=== PATIENT | female | born 1960 | race Caucasian/White ===

== ENCOUNTER 2017-10-07 07:48 | Observation (INO) | payer BC, OTHER ==
[2017-10-01 15:05] VITALS: BMI 35.2
[~2017-10-07 07:48] MED LIST: DEXAMETHASONE SOD PHOSPHATE 10 MG/ML 1 ML VIAL IV ONE; LACTATED RINGERS 1,000 ML IV SCH; ONDANSETRON 4 MG/2 ML VIAL IVP ONE; ceFAZolin IN SWFI 2 GM/20 ML SYRINGE IVP ONE
[2017-10-07] MEDS ORDERED: LIDOCAINE 1% 20 ML VIAL (10MG/ML) FOR IV START INTRADERMA ONE (08:18)
[2017-10-07] MEDS ORDERED: LACTATED RINGERS 1,000 ML IV ONE (08:18)
[2017-10-07] MEDS ORDERED: BUPIVACAINE (PF) 0.5% 30 ML VIAL SQ ONE ×2 (09:24)
[2017-10-07] MEDS ORDERED: PROPOFOL 10 MG/ML 20 ML VIAL IV ONE (09:24)
[2017-10-07] MEDS ORDERED: fentaNYL (PF) 50 MCG/ML 2 ML AMP ONE (09:24)
[2017-10-07] MEDS ORDERED: MIDAZOLAM 2 MG/2 ML VIAL ONE (09:24)
[2017-10-07] MEDS ORDERED: HYDROmorphone (PF) 1 MG/ML ONE (09:24)
[2017-10-07] MEDS ORDERED: ceFAZolin 1,000 MG in SODIUM CHLORIDE 0.9% 1,000 ML IRRIGATION ONE (09:49)
--- NOTE | 2017-10-07 11:28 | XR ---
EXAMINATION TYPE: XR wrist limited RT, FL guidance operating room DATE OF EXAM: 10/07/2017 CLINICAL HISTORY: Open reduction internal fixation of the right wrist TECHNIQUE: Fluoroscopy. COMPARISON: Outside radiographs dated 10/01/2017 FINDINGS/IMPRESSION: Fluoroscopic guidance was provided during procedure performed by Dr. Harris. A t otal of 5 seconds of fluoroscopic time was utilized during the procedure and 4 spot images was acquir ed during open reduction and internal fixation of the right wrist.
[2017-10-07] MEDS ORDERED: HYDROmorphone 1 MG/ML 1 ML SYRINGE IVP PRN ×2 (11:41)
[2017-10-07] MEDS ORDERED: ONDANSETRON 4 MG/2 ML VIAL IVP PRN (11:41)
[2017-10-07] MEDS ORDERED: HYDROcodone/APAP 7.5-325MG 1 EACH TAB PO PRN (11:43)
[2017-10-07] MEDS: HYDROmorphone 1 MG/ML 1 ML SYRINGE IVP PRN ×4 (12:00→19:25)
[2017-10-07] MEDS: LACTATED RINGERS 1,000 ML IV SCH ×2 (12:43→23:37)
[2017-10-07] MEDS: HYDROcodone/APAP 7.5-325MG 1 EACH TAB PO PRN ×2 (16:35→22:57)
[2017-10-07] MEDS: hydrOXYzine PAMOATE 25 MG CAP PO PRN ×2 (16:36→22:57)
[2017-10-07] MEDS: ceFAZolin IN SWFI 2 GM/20 ML SYRINGE IVP SCH ×2 (17:59→23:57)
[2017-10-07] MEDS: MORPHINE SULFATE ER 30 MG TABLET PO SCH (20:03)
[2017-10-07] MEDS ORDERED: TEMAZEPAM 15 MG CAP PO PRN (21:00)
[2017-10-07] MEDS ORDERED: SENNOSIDES-DOCUSATE SODIUM 1 EACH TAB PO PRN (21:00)
[2017-10-08] MEDS: hydrOXYzine PAMOATE 25 MG CAP PO PRN (04:14)
[2017-10-08] MEDS: HYDROcodone/APAP 7.5-325MG 1 EACH TAB PO PRN ×2 (04:15→09:31)
--- NOTE | 2017-10-08 07:49 | OP ---
OPERATIVE REPORT DATE OF SERVICE: 10/07/2017 SURGEON: Timothy Harris DO. GEAR HOBBER OPERATOR: Ragini George NP PREOPERATIVE DIAGNOSIS: Malunion fracture of the distal right radius and distal right ulna. POSTOPERATIVE DIAGNOSIS: Malunion fracture of the distal right radius and distal right ulna. PROCEDURE PERFORMED: Open reduction internal of fixation of a malunion fracture of the distal right radius utilizing the volar plate, open reduction internal fixation of the distal right ulna. ESTIMATED BLOOD LOSS:: SPECIMEN TAKEN:: DESCRIPTION OF THE PROCEDURE: The patient was taken to the operative suite and placed in supine position. General inhalation anesthesia was performed by the department of anesthesiology. A Betadine prep was carried out over the right arm and hand. Sterile drapes applied in the usual manner. The Pneumatic tourniquet was inflated to 250 mmHg. A longitudinal incision was developed over the volar aspect of the distal radius along the flexor carpi radialis tendon. Blunt dissection through the subcutaneous tissue was performed. Dissection was carried out to volar surface of the radius. [place] retractor was inserted and utilized. A periosteal elevator was utilized in visualizing of the distal radius fracture. the elevator was also utilized in freeing tissue in the area. The gentle reduction was then carried out and a volar plate was positioned and secured with peg pin. The reduction and position were well maintained and aligned. The lock peg was utilized Peg screws were utilized. X ray used documenting improvement in position and distal radial tilt. The plate was then secured proximally with screws and reduction was maintained. Alignment and position were stable. X-rays were obtained throughout the procedure documenting alignment and position. The lateral incision was then carried out over the distal ulna fracture. Blunt dissection through subcutaneous tissue was performed. The lateral nerve was gently retracted as well as the carpi ulnaris tendon area was noted. The longitudinal resection with periosteal elevator was performed as the fracture identified. The soft tissue was removed from the area and the fracture was reduced and held in position with a longitudinal clamp. A 4 hole plate was then placed over the fracture with locking screws were inserted and securing both fractures. Alignment and stability were well maintained. Area was irrigated copiously. The pneumatic tourniquet was then deflated. The hemostasis was controlled with electrocautery. No evidence of radial artery bleeding noted at this time. The fascia was then approximated with deep superficial 2-0 Vicryl suture in interrupted fashion. Skin was approximated with 4-0 nylon suture in interrupted fashion. The area was infiltrated with 0.5% Marcaine. Betadine, Adaptic and sterile pressure dressing as well as splint was applied and the patient was then transferred to the recovery room in satisfactory postop condition. GROSS PATHOLOGY: There is evidence of two malunion fracture of the distal right radius and distal ulna. MMODL / IJN: [id number] / MTDAnson
[2017-10-08] MEDS: LACTATED RINGERS 1,000 ML IV SCH (08:04)
[2017-10-08] MEDS: MORPHINE SULFATE ER 30 MG TABLET PO SCH (08:19)
--- NOTE | 2017-10-08 08:39 | P.DS ---
Providers Date of admission: 10/07/17 20:20 Expected date of discharge: 10/08/17 Attending physician: Timothy Harris Consults: 10/07/17 11:41 Consult Physician Routine Consulting Provider: David Anguiano Consult Reason/Comments: medical management Do you want consulting provider notified?: Yes Primary care physician: Stated None - Discharge Diagnosis(es) (1) Distal radius fracture, right Status: Acute (2) Right distal ulnar fracture Status: Acute (3) History of open reduction and internal fixation (ORIF) procedure Status: Acute Hospital Course: This is a 57-year-old female with known history of a recent fracture to her right radius and ulna after a fall. The patient presented to the orthopedic office for evaluation. After discussion and consideration patient elects to proceed with an ORIF of the right radius and ulna. The patient is seen preoperatively by her primary care physician and cleared for surgery. Patient is admitted to observation at [facility] on 10/07/2017 for an ORIF of the right distal radius and ulna. The procedure was performed without complication or sequelae. The patient is doing well postoperatively. Labs and vital signs are stable on day of discharge. On day of discharge patient's dressing and splint are clean, dry, and intact. There is minimal soft tissue swelling to the right upper extremity. Patient has full finger, elbow and shoulder ROM. Neurovascular status to the right upper extremity is intact. Patient is discharged to home in good condition. Patient Condition at Discharge: Stable Plan - Discharge Summary Discharge Rx Participant: Yes New Discharge Prescriptions: New Cephalexin [Keflex] 500 mg PO Q8HR #15 cap HYDROcodone/APAP 7.5-325MG [[place] 7.5-325] 1 - 2 tab PO Q4-6H PRN #60 tab PRN Reason: Pain Sennosides-Docusate Sodium [Senokot-S] 2 tab PO DAILY #30 tablet Discontinued Fish Oil/Dha/Epa [Fish Oil 1,200 mg Fish Oil] 1 cap PO DAILY Ibuprofen 800 mg PO BID PRN PRN Reason: Pain No Action Magnesium Oxide [Mag-Ox] 250 mg PO DAILY Cyanocobalamin (Vitamin B-12) [Vitamin B-12] 1,000 mcg PO DAILY Cinnamon Bark [Cinnamon] 1,000 mg PO DAILY Cholecalciferol [Vitamin D3] 2,000 unit PO DAILY Calcium Carbonate [Calcium] 600 mg PO BID Ascorbic Acid [Vitamin C] 500 mg PO DAILY PARoxetine HCL [Paxil] 40 mg PO DAILY Nortriptyline [Pamelor] 50 mg PO HS Hydrochlorothiazide [Hydrodiuril] 25 mg PO DAILY Morphine Sulfate ER [Ms Contin 30Mg] 30 mg PO Q12HR Hydrocodone/Acetaminophen [[place] 5-325] 1 - 2 tab PO Q6HR PRN PRN Reason: Pain Levothyroxine Sodium [Synthroid] 75 mcg PO DAILY Gabapentin [Neurontin] 400 mg PO TID Omeprazole [PriLOSEC] 40 mg PO W/SUPPER Miralax(Dose Unknown) 1 cap PO DAILY Discharge Medication List Ascorbic Acid [Vitamin C] 500 mg PO DAILY 10/01/17 [History] Calcium Carbonate [Calcium] 600 mg PO BID 10/01/17 [History] Cholecalciferol [Vitamin D3] 2,000 unit PO DAILY 10/01/17 [History] Cinnamon Bark [Cinnamon] 1,000 mg PO DAILY 10/01/17 [History] Cyanocobalamin (Vitamin B-12) [Vitamin B-12] 1,000 mcg PO DAILY 10/01/17 [ History] Gabapentin [Neurontin] 400 mg PO TID 10/01/17 [History] Hydrochlorothiazide [Hydrodiuril] 25 mg PO DAILY 10/01/17 [History] Hydrocodone/Acetaminophen [[place] 5-325] 1 - 2 tab PO Q6HR PRN 10/01/17 [History] Levothyroxine Sodium [Synthroid] 75 mcg PO DAILY 10/01/17 [History] Magnesium Oxide [Mag-Ox] 250 mg PO DAILY 10/01/17 [History] Miralax(Dose Unknown) 1 cap PO DAILY 10/01/17 [History] Morphine Sulfate ER [Ms Contin 30Mg] 30 mg PO Q12HR 10/01/17 [History] Nortriptyline [Pamelor] 50 mg PO HS 10/01/17 [History] Omeprazole [PriLOSEC] 40 mg PO W/SUPPER 10/01/17 [History] PARoxetine HCL [Paxil] 40 mg PO DAILY 10/01/17 [History] Cephalexin [Keflex] 500 mg PO Q8HR #15 cap 10/08/17 [Rx] HYDROcodone/APAP 7.5-325MG [[place] 7.5-325] 1 - 2 tab PO Q4-6H PRN #60 tab [Rx] Sennosides-Docusate Sodium [Senokot-S] 2 tab PO DAILY #30 tablet 10/08/17 [Rx] Follow up Appointment(s)/Referral(s): Timothy Harris DO [Doctor of Osteopathic Medicine] - 10/22/17 10:00 am Patient Instructions/Handouts: ORIF of a Wrist Fracture (DC) Activity/Diet/Wound Care/Special Instructions: Keep splint clean, dry, and intact Elevate and ice Sling for comfort Follow up with Dr. Harris in 7-10 days Call [facility] with any questions or concerns, . Discharge Disposition: HOME SELF-CARE
[2017-10-08 22:57] VITALS: BP 125/74; PULSE 81; RESP 16; TEMP 98.3
--- NOTE | 2017-10-08 23:02 | CONS ---
CONSULTATION REASON FOR CONSULTATION: Consultation regarding hypothyroidism and multiple medical issues requested by Orthopedic surgery. HISTORY: This 57-year-old woman with past medical history of hypothyroidism, GERD, fibromyalgia, DJD being followed by Dr. Hicks in the outpatient setting was admitted after surgery for a radial fracture. There is no history of chest pain. No history of palpitations, headache, loss of consciousness or seizures. No history of headache, nausea or vomiting, fever, rigors or chills. PAST MEDICAL HISTORY: History of fibromyalgia, GERD, hypothyroidism, back surgery and DJD. MEDICATIONS: Home medications are: 1. Paxil 40 mg daily. 2. Prilosec 40 mg daily. 3. Pamelor 50 mg. 4. MS Contin 30 mg p.o. b.i.d. 5. Magnesium oxide 250 mg. 6. Synthroid 75 mcg. 7. [place] 5 mg q.6h p.r.n. 8. HydroDIURIL 25 mg daily. 9. Neurontin 400 mg daily. 10.Vitamin D2 2000 mcg. 11.Vitamin D3 2000 daily. 12.Calcium 600 mg daily. 13.Vitamin C 500 mg daily. 14.Senokot-S 2 tablets p.o. daily. 15.[place] 7.5 mg. 16.Keflex. ALLERGIES: ARE BACTRIM, LATEX, NEOMYCIN, POLYMYXIN. FAMILY HISTORY: History of cancer in the family. SOCIAL HISTORY: Previous history of smoking. Occasional alcohol intake. REVIEW OF SYSTEMS: ENT: No diminished vision. No diminished hearing. Cardiovascular: S1, S2 muffled. Respiratory: No cough. GI no nausea or vomiting. : No dysuria. NERVOUS SYSTEM: No numbness or weakness. Allergy/Immunology: No asthma or hayfever. Musculoskeletal: As mentioned earlier. Hematology/Oncology: No history of anemia. ENDOCRINE: No history of diabetes or hypothyroidism. Constitutional: As mentioned earlier. Rheumatology: Negative. Dermatology: Negative. Psychiatric: As mentioned earlier. PHYSICAL EXAMINATION: Alert and oriented x2. Pulse is 81, blood pressure 125/70, respirations 18, temperature 98.2, pulse ox 98% on room air. HEENT: Conjunctivae normal. Neck: No jugular venous distention. Cardiovascular: S1, S2 muffled. Respiratory: Breath sounds diminished in the bases. No rhonchi and no crackles. ABDOMEN: Soft, nontender. No mass palpable. Legs are no edema, no swelling. Central nervous system: No focal deficits. Examination of the arm status post fracture. LABS: Noted. ASSESSMENT: 1. Status post open reduction and internal fixation with malunion fracture of the distal right radius. 2. Chronic pain syndrome. 3. Fibromyalgia. 4. Gastroesophageal reflux disease. 5. Hypothyroidism. 6. Back pain, DJD. 7. Depression. 8. Remote history of nicotine dependence. RECOMMENDATIONS AND DISCUSSION: In this 57-year-old woman who presented with multiple complex medical issues, I would recommend resume the home medications. DVT prophylaxis. Incentive spirometry. Recommend close followup with primary physician in the outpatient setting. We will follow the patient closely with you. Thank you for letting us taking part in the patient's care. MARISA / IJN: [id number] /
== END 2017-10-08 12:15 | disposition home or self-care (01) ==
LOC: OR 07:48 → 3SUR 11:29 → OR 20:20 → 3SUR 20:20
PROVIDERS: ADMIT Orthopaedic Surgery; ATTEND Orthopaedic Surgery
DX: S52.501A Unspecified fracture of the lower end of right radius, initial encounter for closed fracture (principal); S52.601A Unspecified fracture of lower end of right ulna, initial encounter for closed fracture; W18.30XA Fall on same level, unspecified, initial encounter; Y99.0 Civilian activity done for income or pay; G89.4 Chronic pain syndrome; M79.7 Fibromyalgia; K21.9 Gastro-esophageal reflux disease without esophagitis; E03.9 Hypothyroidism, unspecified; M19.90 Unspecified osteoarthritis, unspecified site; M54.9 Dorsalgia, unspecified; F32.9 Major depressive disorder, single episode, unspecified; Z87.891 Personal history of nicotine dependence; Z80.9 Family history of malignant neoplasm, unspecified; Z88.1 Allergy status to other antibiotic agents; Z91.040 Latex allergy status; Z79.899 Other long term (current) drug therapy; Z79.891 Long term (current) use of opiate analgesic; Z88.2 Allergy status to sulfonamides
CPT/HCPCS: 25415; 94760; 73100; G0378 ×2; C1713; J2250; J1100; J0690 ×2; J2405; J3010; J1170; J2704

== ENCOUNTER → 2020-08-25 | Outpatient (CLI) | payer OTHER | END | disposition home or self-care (01) | LOC: LABWHC1 11:31 | PROVIDERS: ATTEND Nurse Practitioner | DX: E03.9 Hypothyroidism, unspecified (principal); E11.9 Type 2 diabetes mellitus without complications | CPT/HCPCS: 36415; 84439; 84443 ==

== ENCOUNTER → 2020-08-25 | Outpatient (CLI) | payer OTHER ==
--- NOTE | 2020-08-25 12:18 | XR ---
EXAMINATION TYPE: XR chest 2V DATE OF EXAM: 08/25/2020 COMPARISON: None INDICATION: Right lower rib pain, presurgical clearance TECHNIQUE: Frontal and lateral views of the chest are obtained. FINDINGS: The heart size is normal. The pulmonary vasculature is normal. The lungs are clear. IMPRESSION: 1. No acute pulmonary process.
[2020-08-25 12:51] LABS: Basophils % (A) 1 %; Eosinophils % (A) 0 %; HCT 41.5 % (34.0-46.0); HGB 13.8 gm/dL (11.4-16.0); Lymphocytes % (A) 12 %; MCH 30.6 pg (25.0-35.0); MCHC 33.1 g/dL (31.0-37.0); MCV 92.3 fL (80.0-100.0); Mean Platelet Volume 8.2; Monocytes # (A) 0.2 k/uL (0-1.0); Monocytes % (A) 3 %; Neutrophils # (A) 6.6 k/uL (1.3-7.7); Neutrophils % (A) 84 %; Platelet Count 249 k/uL (150-450); RDW 13.2 % (11.5-15.5); WBC 7.9 k/uL (3.8-10.6)
[2020-08-25 13:02] LABS: African American GFR (CKD) >90 (>60 ml/min/1.73 sqM); Anion Gap 5 mmol/L; Blood Urea Nitrogen 19 mg/dL (7-17); Calcium 9.5 mg/dL (8.4-10.2); Carbon Dioxide 35 mmol/L (22-30); Chloride 98 mmol/L (98-107); Glucose 147 mg/dL (74-99); Non-African American GFR(CKD) >90 (>60 ml/min/1.73 sqM); Potassium 4.8 mmol/L (3.5-5.1); Sodium 138 mmol/L (137-145)
[2020-08-25 13:03] LABS: Amorphous Sediment,Urine Many /hpf; Appearance,Urine Cloudy (Clear); Bilirubin,Urine Negative (Negative); Blood,Urine Negative (Negative); Color,Urine Yellow; Glucose,Urine (UA) Negative (Negative); Ketones,Urine Negative (Negative); Leukocyte Esterase,Urine Trace (Negative); Mucus,Urine Rare /hpf; Nitrite,Urine Negative (Negative); PH, Urine 7.5 (5.0-8.0); Protein,Urine Negative (Negative); Prothrombin Time 10.4 sec (9.0-12.0); Squamous Epithelial Cell,Urine <1 /hpf (0-4); Urobilinogen,Urine <2.0 mg/dL (<2.0); WBC,Urine 2 /hpf (0-5)
[2020-08-25 13:04] LABS: Partial Thromboplastin Time 22.5 sec (22.0-30.0)
== END | disposition home or self-care (01) ==
LOC: LABPAT 11:24
PROVIDERS: ATTEND Orthopaedic Surgery Orthopaedic Surgery of the Spine
DX: Z01.818 Encounter for other preprocedural examination (principal); Z01.812 Encounter for preprocedural laboratory examination; M48.07 Spinal stenosis, lumbosacral region
CPT/HCPCS: 36415; 71046; 80048; 81001; 85025; 85610; 85730; 87070; 93005

== ENCOUNTER 2020-09-04 06:05 | Observation (INO) | payer BC, OTHER ==
[2020-08-29 13:04] VITALS: BMI 36.0
[~2020-09-04 06:05] MED LIST changes: -DEXAMETHASONE SOD PHOSPHATE 10 MG/ML 1 ML VIAL IV ONE; +DEXAMETHASONE SOD PHOSPHATE 4 MG/ML 1 ML VIAL IV ONE; -LACTATED RINGERS 1,000 ML IV SCH; +ceFAZolin 1,000 MG in SODIUM CHLORIDE 0.9% IRRIGATIO 1,000 ML IRRIGATION PRN; -ceFAZolin IN SWFI 2 GM/20 ML SYRINGE IVP ONE
[2020-09-04 06:51] LABS: Glucose,Whole Blood 144 mg/dL (75-99)
[2020-09-04] MEDS ORDERED: GELATIN SPONGE,ABSORB (LARGE) 1 EACH SPONGE TOPICAL ONE (07:00)
[2020-09-04] MEDS ORDERED: LIDOCAINE 0.5%-EPI 1:200,000 50 ML VIAL SQ ONE (07:00)
[2020-09-04] MEDS ORDERED: LIDOCAINE 1% (10MG/ML) FOR IV START INTRADERMA ONE (07:00)
[2020-09-04] MEDS ORDERED: THROMBIN (BOVINE) 5,000 UNIT VIAL TOPICAL ONE (07:00)
[2020-09-04] MEDS ORDERED: HYDROCORTISONE SUCCINATE 100 MG/2 ML VIAL IV ONE (07:07)
[2020-09-04] MEDS: LACTATED RINGERS 1,000 ML IV SCH (07:08)
[2020-09-04] MEDS ORDERED: MIDAZOLAM 2 MG/2 ML VIAL ONE (07:25)
[2020-09-04] MEDS ORDERED: LIDOCAINE 1% INJ 10MG/ML (20 ML MDV) ONE (07:25)
[2020-09-04] MEDS ORDERED: ROCURONIUM 10 MG/ML (10 ML VIAL) IV ONE (07:25)
[2020-09-04] MEDS ORDERED: SUCCINYLCHOLINE CHLORIDE 100 MG/5 ML SYR IV ONE (07:25)
[2020-09-04] MEDS ORDERED: PROPOFOL 10 MG/ML 20 ML VIAL IV ONE (07:25)
[2020-09-04] MEDS ORDERED: GLYCOPYRROLATE 0.2 MG/ML 2 ML VIAL ONE (07:25)
[2020-09-04] MEDS ORDERED: NEOSTIGMINE 1 MG/ML 10 ML VIAL ONE (07:25)
[2020-09-04] MEDS ORDERED: fentaNYL (PF) 50 MCG/ML 2 ML AMP ONE (07:25)
[2020-09-04] MEDS ORDERED: KETAMINE 10 MG/ML 20 ML VIAL ONE (07:25)
[2020-09-04] MEDS ORDERED: LACTATED RINGERS 1,000 ML IV ONE ×2 (09:00→11:55)
[2020-09-04] MEDS ORDERED: ONDANSETRON 4 MG/2 ML VIAL IVP PRN (10:46)
[2020-09-04] MEDS ORDERED: HYDROcodone/APAP 5-325MG 1 EACH TAB PO PRN (10:46)
[2020-09-04] MEDS ORDERED: MAGNESIUM HYDROXIDE 2,400 MG/10 ML CUP PO PRN (10:46)
[2020-09-04] MEDS ORDERED: BENZOCAINE/MENTHOL LOZENG 1 EACH LOZENGE MUCOUS MEM PRN (10:46)
[2020-09-04] MEDS ORDERED: HYDROmorphone 0.5 MG/0.5 ML SYRINGE IVP PRN (10:46)
--- NOTE | 2020-09-04 10:57 | P.OP ---
Date of Procedure: 09/04/20 Preoperative Diagnosis: Spinal stenosis L5-S1, severe disc degeneration L5-S1, degenerative disc disease L5-S1, facet arthrosis L5-S1, foraminal stenosis L5-S1, low back pain, lower extremity radiculopathy Postoperative Diagnosis: Spinal stenosis L5-S1, severe disc degeneration L5-S1, degenerative disc disease L5-S1, facet arthrosis L5-S1, foraminal stenosis L5-S1, low back pain, lower extremity radiculopathy Anesthesia: GETA Pathology: none sent Condition: stable Disposition: PACU Description of Procedure: DESCRIPTION OF PROCEDURE(S): BRIEF OPERATIVE NOTE Preoperative Diagnosis: Spinal stenosis L5-S1, severe disc degeneration L5-S1, degenerative disc disease L5-S1, facet arthrosis L5-S1, foraminal stenosis L5- S1, low back pain, lower extremity radiculopathy Postoperative Diagnosis: Same Procedure: Laminectomy and decompression L5-S1 Computer CT navigation aided Minimally invasive Posterior lateral decompression and facet fusion L5-S1 Minimally invasive Transforaminal lumbar interbody fusion for a 360 fusion L5-S1 Discectomy for decompression L5-S1 Placement of interbody graft L5-S1 Use of computer navigation for fusion Local autogenous bone grafting Aspiration of bone marrow from the vertebral body pedicle of L5 on the right Use of bone graft extenders Surgeon: Dr. Choudhary Umbrella Finisher: Mehnaz GROSS who is present throughout the entire the case persistence during positioning, dissection, exposure, visualization, and all crucial elements of the case as well as closure. Anesthesia: General anesthesia per Estimated blood loss: Approximately 200 mL Complications: None apparent Components implanted: K2M minimally invasive Elida pedicle screw system withscrews measuring 6.5 mm in diameter to rods one Butler interbody cage with 10 mL of osteo amp bio4 bone graft substitute and 30 mL of the BX bone fibers to supplement the local autogenous bone graft and bone marrow aspirate Disposition: To recovery room in good stable condition. OPERATIVE INDICATIONS The patient has had severe issues at their lower extremity in her lower back over the past several years with significant worsening over the past several months. Over the past few months the patient had pain at her back and bilateral lower extremity. The patient is having significant radicular symptoms at her lower extremity. The patient is having significant pain in her back. They are unable to obtain any comfort. We did aggressive conservative treatment with medications therapy and interventional pain management however she was not having any relief. The patient has been through conservative treatment. We discussed various treatment options including surgery, and the patient wishes to proceed with surgery We discussed the risk, patient's alternatives and benefits of surgery including but not limited to, risk of bleeding risk of infection, risk of need for further surgery, risk of decreased, loss of motion, muscle function, malunion nonunion, hardware failure, nerve damage, paralysis, heart attack, blindness and . They understood issues with the current pandemic and the possibility of exposure. OPERATIVE SUMMARY After discussing all the risks, patient alternatives and benefits at length, the patient elected to proceed with surgical intervention, signed informed consent, and presented for their procedure. The patient was seen and examined in the preoperative holding area and the surgical site was marked. The patient was given antibiotics and brought to the operating room. The patient was sedated and intubated by anesthesia in standard fashion. The patient was positioned on to the operating room table in a prone position on the appropriate frame which was well-padded and well molded. We were careful to pad any bony prominences and pressure points. We were careful to maintain the patient's cervical spine and good neutral alignment and position throughout. The patient was prepped and draped in a normal standard fashion. An appropriate timeout and keystone protocol performed. We were able to proceed with the surgery. The local wound area was infiltrated with local anesthetic at L5-S1 bilaterally. Over the right iliac crest I was able to make small stab incisions and establish a guidepin screw fixation to the iliac crest 2. I was able place the computer referencing device over the guidepins to establish an appropriate reference point for the Ziem CT navigation. We then were able to place patient in an appropriate drape and do a navigation spin for visualization and 3-D reconstruction of the lumbar spine with attention to the L5-S1 space. I was abl e utilize C-arm guidance and navigation to establish appropriate position over the pedicles bilaterally at the appropriate levels . With the appropriate levels confirmed was able to make small stab incisions over the appropriate pedicle sites bilaterally. Utilizing the computer navigation device I was able to establish bony landmarks at the right iliac crest for a bony reference point for the navigation device. I was able to establish a Jamshidi needle over the lateral aspect of the pedicle and advanced the trocar into the pedicle being careful not to breech superiorly inferiorly medially or laterally using computer navigation device. Position was confirmed regularly with AP and lateral images on C-arm and with the computer navigation device at the appropriate levels bilaterally. I was able to establish the trocar into the pedicle appropriately into the posterior aspect of the vertebral body bilaterally at the appropriate levels. This was done at each of the pedicle positions and each of the vertebrae. At the superior vertebrae of L5 on the right I was able to take approximately 25 mL of bone aspiration for use later in the case to supplement the allograft and autograft bone. I was able place the guidewire into the trocar and into the vertebral body appropriately under C-arm guidance. Dissection was taken down over the wire to the appropriate starting position for the screw placed. The appropriate length screw was chosen, threaded over the guidewire and screwed appropriately into the pedicle and vertebral body under C- arm guidance in excellent alignment and position with good bony purchase. This is done at each of the screw sites at the appropriate levels at L5-S1 bilaterally.. With the screws intact I extended the incision to connect the screw hole sites on the left side. I dissected down to establish access over the pars and lamina to the base of the spinous process. I was able to expose the facet joint. The capsule the facet was taken down and showed some facet arthrosis at the joint. I was able to use a combination of curettes and Kerrison rongeurs and a high- speed drill to take down the facet joint and do a facetectomy. I was able get excellent foraminal decompression and central decompression with undermining across midline to perform a laminectomy centrally and contralaterally. As able get good central decompression at L5-S1. The ligamentum flavum was taken down to further decompress centrally and at bilateral neural foramen. I was able to expose the disc space and visualize the traversing nerve root. Note was made of some disc protrusion and disc herniation that was abutting the traversing nerve root at the level causing further compression of the nerve root. The disc was severely collapsed however I was able to establish a annulotomy at the appropriate level protecting soft tissue and neural structures. Note was made of some disc desiccation at the disc. I performed a complete discectomy with accommodation of curettes and rasps and scrapers. I was able get good endplate preparation at the disc space. I sized for the appropriate size interbody spacer protecting the soft tissue and neural structures. The wound was copiously irrigated and suctioned dry. There is no evidence of any dural tear or leak. I was able to pack the disc space with local autogenous bone graft as well as a small amount of bone graft which was also placed into the interbody cage itself. Protecting the soft tissue structures and neural structures I was able place the interbody cage in good alignment and good position with good fit and fill at the interbody space at L5-S1 with a 7 mm interbody spacer. Position was confirmed with C-arm guidance. Good hemostasis maintained. There is no evidence of any dural tear or leak. Th e wound was irrigated and suctioned dry. With the hardware intact, intraoperative C-arm imaging was again taken which showed good alignment and position of the hardware at the appropriate levels. We were then able to measure, contour and place the rods and appropriate hardware bilaterally. I was able to place capcrews, tighten them down, and torque them with the torque screwdriver appropriately. With this intact I was able to place the local autogenous bone graft with additional bone graft enhancer as necessary into the posterior lateral gutters over the decorticated transverse processes and facet joints on the contralateral side. The remainder of the bone graft was placed over the facet joint on the contralateral side after taking down the facet joint capsule. With the bone graft intact, a stable construct, and good decompression at the appropriate levels, we were able to proceed with closure. Good hemostasis was maintained. There is no evidence of dural tear or leak. The fascia was closed for a watertight closure. he subcuticular tissue was closed with absorbable suture. The wound was cleaned and dried and dressed with the appropriate dressing. The drapes were broken down. The patient was gently rolled back onto their hospital bed being careful to maintain their cervical spine and good neutral alignment and position. They were woken up by anesthesia, extubated, and brought to the recovery room in good stable condition. The patient will be admitted to the hospital for appropriate postoperative care, medical management and monitoring. We will continue to follow them closely about the postoperative course.
--- NOTE | 2020-09-04 11:06 | XR ---
EXAMINATION TYPE: XR lumbar spine 2 or 3V, FL guidance operating room DATE OF EXAM: 09/04/2020 Comparison: None Clinical History: 60-year-old female STENOSIS L5-S1. MIN INVASIVE. Findings: Intraoperative fluoroscopy for placement of L5-S1 posterior and interbody fusion hardware. FLUOROSCOPY Fluoroscopy time of 19 seconds was used during minimally invasive L5-S1 fusion. 6 image/s document/s the procedure. Impression: No acute cardiopulmonary process.
[2020-09-04 11:11] LABS: Glucose,Whole Blood 184 mg/dL (75-99)
[2020-09-04] MEDS: HYDROmorphone 0.5 MG/0.5 ML SYRINGE IVP PRN ×4 (11:25→12:15)
[2020-09-04] MEDS ORDERED: diphenhydrAMINE 50 MG/ML 1 ML VIAL IVP ONE (11:58)
[2020-09-04] MEDS: SODIUM CHLORIDE 0.9% 1,000 ML IV SCH ×2 (14:19→14:24)
[2020-09-04] MEDS: HYDROmorphone 1 MG/ML 1 ML SYRINGE IVP PRN (14:21)
[2020-09-04] MEDS: GABAPENTIN 300 MG CAP PO SCH ×2 (16:07→20:42)
[2020-09-04 16:31] LABS: Glucose,Whole Blood 132 mg/dL (75-99)
--- NOTE | 2020-09-04 17:20 | P.CONS ---
History of Present Illness - Reason for Consult Consult date: 09/04/20 - History of Present Illness Patient is a 60-year-old female with a PMH of fibromyalgia, rheumatoid arthritis, hyperlipidemia, hypertension, GERD, hypothyroidism, and chronic lower back pain who was admitted for an elective lumbosacral discectomy and spinal fusion. The patient was seen postoperatively on the surgical unit. Patient had no immediate postoperative palpitations. She noted ongoing severe pain rated at an 8 out of 10 in her lower back. She denied any additional complaints. She had been sitting at the edge of the bed and had stood up once since her surgery. She has not used the restroom, passed urine, or had a bowel movement of the yet. She denied chest pain, shortness of breath, cough, fever, chills. Denied weakness, numbness, tingling, sore throat. Review of Systems Pertinent positives and negatives as discussed in HPI, a complete review of systems was performed and all other systems are negative. 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., daily steroids since June to help w/back pain History of Any Multi-Drug Resistant Organisms: None Reported Past Surgical History: Back Surgery, Section, Hysterectomy, Orthopedic Surgery Additional Past Surgical History / Comment(s): skin cancer removed from lower back, cervical fusion, tammi carpal tunnel, ORIF RIGHT WRIST Past Anesthesia/Blood Transfusion Reactions: No Reported Reaction Past Psychological History: Depression Smoking Status: Never smoker Past Alcohol Use History: Rare Additional Past Alcohol Use History / Comment(s): quit smoking >10 yrs ago, smoked for 10 yrs, < 1 PPD Past Drug Use History: None Reported - Past Family History Son(s) Family Medical History: Cancer Medications and Allergies Home Medications Medication Instructions Recorded Confirmed Type Ascorbic Acid [Vitamin C] 500 mg PO DAILY 10/01/17 09/04/20 History Calcium Carbonate [Calcium] 600 mg PO BID 10/01/17 09/04/20 History Cholecalciferol [Vitamin D3] 2,000 unit PO DAILY 10/01/17 09/04/20 History Cyanocobalamin (Vitamin B-12) 1,000 mcg PO DAILY 10/01/17 09/04/20 History [Vitamin B-12] Gabapentin [Neurontin] 600 mg PO TID 10/01/17 09/04/20 History Levothyroxine Sodium [Synthroid] 75 mcg PO DAILY 10/01/17 09/04/20 History Magnesium Oxide [Mag-Ox] 250 mg PO DAILY 10/01/17 09/04/20 History Morphine Sulfate ER [Ms Contin 30 mg PO Q12HR 10/01/17 09/04/20 History 30Mg] Nortriptyline [Pamelor] 50 mg PO HS 10/01/17 09/04/20 History Omeprazole [PriLOSEC] 40 mg PO HS 10/01/17 09/04/20 History Polyethylene Glycol 3350 [Miralax] 17 gm PO DAILY 10/01/17 09/04/20 History hydroCHLOROthiazide [Hydrodiuril] 50 mg PO DAILY 10/01/17 09/04/20 History Atorvastatin [Lipitor] 10 mg PO HS 08/29/20 09/04/20 History DULoxetine HCL [Cymbalta] 60 mg PO BID 08/29/20 09/04/20 History Melatonin 10 mg PO HS 08/29/20 09/04/20 History Natural Laxative 4 tab PO BID 08/29/20 09/04/20 History predniSONE 10 mg PO DAILY 08/29/20 09/04/20 History Allergies Allergy/AdvReac Type Severity Reaction Status Date / Time bacitracin Allergy red Verified 09/04/20 06:34 [From Neosporin burning ([id number])] skin latex Allergy itchy rash Verified 09/04/20 06:34 neomycin Allergy red Verified 09/04/20 06:34 [From Neosporin burning ([id number])] skin polymyxin B Allergy red Verified 09/04/20 06:34 [From Neosporin burning ([id number])] skin Physical Exam Vitals: Vital Signs Temp Pulse Pulse Resp BP Pulse Ox 09/04/20 14:00 97.3 F L 70 18 152/82 100 09/04/20 13:30 70 16 123/55 96 09/04/20 13:15 70 16 111/57 96 09/04/20 12:45 76 16 125/59 96 11/30/20 12:25 75 17 121/52 96 09/04/20 12:10 76 16 139/62 97 09/04/20 11:55 79 16 153/79 95 09/04/20 11:35 85 16 157/76 98 09/04/20 11:20 82 16 144/81 99 09/04/20 11:05 84 16 159/81 100 09/04/20 10:50 72 16 155/74 98 09/04/20 10:39 99 F 86 16 158/75 98 09/04/20 07:01 97.8 F 91 169/86 95 Intake and Output 09/04/20 09/04/20 09/04/20 06:59 14:59 22:59 Intake Total 2751 Output Total 2250 Balance 501 Intake: IV 2751 Output: Urine 2000 Estimated Blood Loss 250 Other: Voiding Method Indwelling Catheter Weight 98.5 kg General: non toxic, in no acute distress, appears at stated age, morbidly obese Derm: no unusual rashes/lesions no unusual ecchymoses, warm, dry Head: atraumatic, normocephalic, symmetric Eyes: EOMI, no lid lag, anicteric sclera, pupils equal round reactive to light ENT: Nose and ears atraumatic, no thrush, no pharyngeal erythema Neck: No thyromegaly, no cervical lymphadenopathy, trachea midline, supple Mouth: no lip lesion, mucus membranes moist Cardiovascular: S1S2 reg, no murmur, positive posterior tibial pulse bilateral, no edema, capillary refill less than 2 seconds Lungs: CTA bilateral, no rhonchi, no rales , no accessory muscle use Abdominal: soft, nontender to palpation, no guarding, no appreciable organomegaly, normal bowel sounds Ext: no gross muscle atrophy, postsurgical back dressings in place, clean and dry, no focal neuro deficits noted, no contractures Neuro: CN II-XI grossly intact, light touch intact all 4 extremities, finger to nose within normal limits Psych: Alert, oriented, appropriate affect Results Labs: Abnormal Lab Results - Last 24 Hours (Table) 09/04/20 09/04/20 09/04/20 Range/Units 06:50 11:10 16:29 POC Glucose (mg/dL) 144 H 184 H 132 H (75-99) mg/dL Assessment and Plan Plan: Hypertension -Continue with home med HCTZ Hyperlipidemia -Continue with home Lipitor Hypothyroidism, fibromyalgia, rheumatoid arthritis -Continue with home medications Chronic low back pain status post lumbosacral discectomy and fusion -Management including pain control as per the surgery service We appreciate this opportunity to be involved in this patient's care. We will follow the patient with you. For any further questions, please not hesitate to contact the sound inpatient team.
[2020-09-04] MEDS: HYDROcodone/APAP 5-325MG 1 EACH TAB PO PRN (17:30)
[2020-09-04 20:16] LABS: Glucose,Whole Blood 122 mg/dL (75-99)
[2020-09-04] MEDS: MELATONIN 5 MG TABLET PO SCH (20:20)
[2020-09-04] MEDS: ATORVASTATIN 10 MG TAB PO SCH (20:20)
[2020-09-04] MEDS: PANTOPRAZOLE 40 MG TABLET PO SCH (20:20)
[2020-09-04] MEDS: MORPHINE SULFATE ER 30 MG TABLET PO SCH (20:20)
[2020-09-04] MEDS: CALCIUM CARBONATE 500 MG CHEWABLE PO SCH ×2 (20:21→20:30)
[2020-09-04] MEDS: DULoxetine HCL 60 MG CAPSULE.DR PO SCH (20:25)
[2020-09-04] MEDS: NORTRIPTYLINE 25 MG CAP PO SCH (20:25)
[2020-09-05] MEDS: HYDROmorphone 1 MG/ML 1 ML SYRINGE IVP PRN ×3 (00:45→11:11)
[2020-09-05] MEDS: LEVOTHYROXINE 75 MCG TAB PO SCH (05:32)
[2020-09-05] MEDS: LACTATED RINGERS 1,000 ML IV SCH (05:50)
[2020-09-05 06:28] LABS: Basophils # (A) 0.1 k/uL (0-0.2); Basophils % (A) 1 %; Eosinophils # (A) 0.1 k/uL (0-0.7); Eosinophils % (A) 1 %; HCT 39.8 % (34.0-46.0); HGB 13.3 gm/dL (11.4-16.0); Lymphocytes % (A) 19 %; MCH 30.6 pg (25.0-35.0); MCHC 33.4 g/dL (31.0-37.0); MCV 91.6 fL (80.0-100.0); Mean Platelet Volume 8.1; Monocytes # (A) 0.5 k/uL (0-1.0); Monocytes % (A) 5 %; Neutrophils # (A) 7.4 k/uL (1.3-7.7); Neutrophils % (A) 73 %; Platelet Count 214 k/uL (150-450); RBC 4.35 m/uL (3.80-5.40); RDW 13.1 % (11.5-15.5); WBC 10.1 k/uL (3.8-10.6)
[2020-09-05] MEDS: polyethylene glycoL 3350 17 GM POWD.PACK PO SCH (07:57)
[2020-09-05] MEDS: GABAPENTIN 300 MG CAP PO SCH ×3 (07:57→20:24)
[2020-09-05] MEDS: SENNOSIDES-DOCUSATE SODIUM 1 EACH TAB PO SCH (07:58)
[2020-09-05] MEDS: ASCORBIC ACID 500 MG TAB PO SCH (07:59)
[2020-09-05] MEDS: CHOLECALCIFEROL 1,000 UNIT TAB PO SCH (07:59)
[2020-09-05] MEDS: CALCIUM CARBONATE 500 MG CHEWABLE PO SCH ×2 (07:59→20:25)
[2020-09-05] MEDS: CYANOCOBALAMIN 500 MCG TAB PO SCH (08:00)
[2020-09-05] MEDS: MAGNESIUM OXIDE 400 MG TAB PO SCH (08:01)
[2020-09-05] MEDS: MORPHINE SULFATE ER 30 MG TABLET PO SCH ×2 (08:01→20:25)
[2020-09-05] MEDS: DULoxetine HCL 60 MG CAPSULE.DR PO SCH ×2 (08:03→20:29)
[2020-09-05] MEDS: predniSONE 10 MG TAB PO SCH (08:03)
[2020-09-05] MEDS: hydroCHLOROthiazide 25 MG TAB PO SCH (08:09)
[2020-09-05 10:09] LABS: African American GFR (CKD) 79.4 (60.0-200.0); Anion Gap 8.9 mmol/L (4.00-12.00); BUN/Creat Ratio 18.89 Ratio (12.00-20.00); Calcium 8.7 mg/dL (8.7-10.3); Carbon Dioxide 33.1 mmol/L (21.6-31.8); Non-African American GFR(CKD) 68.5 (60.0-200.0)
--- NOTE | 2020-09-05 10:21 | P.PN ---
Subjective Progress Note Date: 09/05/20 This patient is a 60-year-old female who is status-post minimally invasive posterior lateral decompression and fusion L5-S1 on 09/04/[address] Choudhary. Today's postoperative day #1. Patient is seen and examined bedside this morning. She states she is experiencing moderate pain in the low back today. She recently received a dose of IV Dilaudid. Patient has been ambulating around the room without significant issues. She has not yet been evaluated by physical therapy. Her [place] catheter was removed this morning and she has not yet urinated. She has not yet had a bowel movement postoperatively. Patient is tolerating her diet. She denies chest pain, shortness breath, nausea, vomiting, fevers, chills. She denies numbness or tingling of the bilateral lower extremities. She has no new complaints today. Vital signs stable. Objective - Vital Signs Vital signs: Vital Signs Temp 97.7 F 09/05/20 07:54 Pulse 81 09/05/20 07:54 Resp 16 09/05/20 07:54 BP 104/69 09/05/20 07:54 Pulse Ox 95 09/05/20 07:54 Intake & Output 09/04/20 09/05/20 09/05/20 18:59 06:59 18:59 Intake Total 2751 Output Total 2250 1200 Balance 501 -1200 Weight 98.5 kg Intake: IV 2751 Output: Urine 2000 1200 Estimated Blood Loss 250 Other: Voiding Method Indwelling Catheter - Exam On examination, the patient is sitting up at the bedside chair in no apparent distress. She is alert and oriented to time on inspection of the low back, there are [address] with no bleeding or drainage to the dressings. There is mild ecchymosis of the low back. Patient has good strength and range of motion of her bilateral ankles. Motor and sensory function are intact in bilateral lower extremities. Bilateral lower extremities are warm and well perfused with brisk capillary refill distally. Calves are soft and nontender to palpation bilaterally. No evidence of DVT. Lower extremity compression cuffs are in place. - Labs CBC & Chem 7: 09/05/20 06:09 09/05/20 06:09 Labs: Abnormal Lab Results - Last 24 Hours (Table) 11/30/20 11/30/20 11/30/20 Range/Units 11:10 16:29 20:15 Potassium (3.5-5.5) mmol/L Carbon Dioxide (21.6-31.8) mmol/L Glucose (70-110) mg/dL POC Glucose (mg/dL) 184 H 132 H 122 H (75-99) mg/dL 09/05/20 Range/Units 06:09 Potassium 3.0 L (3.5-5.5) mmol/L Carbon Dioxide 33.1 H (21.6-31.8) mmol/L Glucose 136 H (70-110) mg/dL POC Glucose (mg/dL) (75-99) mg/dL Assessment and Plan Assessment: Status-post minimally invasive posterior lateral decompression and fusion L5-S1 on 09/04/20. Post-operative day #1. Plan: - Patient may continue to ambulate as tolerated. Physical therapy for gait and balance training. - No overhead activities. No repetitive twisting or bending. - Patient may shower over Optifoam dressings. - Continue pain management. Decrease use of IV diluadid as tolerated. - Medical management per internal medicine. - We will continue to follow patient closely. Anticipate discharge home tomorrow.
[2020-09-05] MEDS: SODIUM CHLORIDE 0.9% 1,000 ML IV SCH ×2 (11:13→14:24)
[2020-09-05] MEDS: HYDROcodone/APAP 5-325MG 1 EACH TAB PO PRN ×2 (13:54→23:27)
[2020-09-05] MEDS ORDERED: POTASSIUM CHLORIDE ER 20 MEQ TAB.ER PO STA (20:05)
--- NOTE | 2020-09-05 20:08 | P.PN ---
Progress Note - Text Progress Note Date: 09/05/20 Presenting complaint: Low back pain Interval history: Patient status post lumbar surgery. Today-laying in bed. Has been out of bed. Pain is better controlled. No nausea vomiting. Did pass flatus. Oral intake code. Review of systems: Was done for constitutional, cardiovascular, GI, pulmonary. relevant finding as above Active Medications Hydrocodone Bitart/Acetaminophen (Hydrocodone/Apap 5-325mg 1 Each Tab) 1 each PO Q4HR PRN PRN Reason: Moderate Pain Hydrocodone Bitart/Acetaminophen (Hydrocodone/Apap 5-325mg 1 Each Tab) 2 each PO Q4HR PRN PRN Reason: Moderate Pain Last Admin: 09/05/20 13:54 Dose: 2 each Documented by: Ascorbic Acid (Ascorbic Acid 500 Mg Tab) 500 mg PO DAILY [facility] Last Admin: 09/05/20 07:59 Dose: 500 mg Documented by: Atorvastatin Calcium (Atorvastatin 10 Mg Tab) 10 mg PO HS [facility] Last Admin: 09/04/20 20:20 Dose: 10 mg Documented by: Benzocaine/Menthol (Benzocaine/Menthol Lozeng 1 Each Lozenge) 1 each MUCOUS MEM Q4HR PRN PRN Reason: Sore Throat Calcium Carbonate/Glycine (Calcium Carbonate 500 Mg Chewable) 500 mg PO BID [facility] Last Admin: 09/05/20 07:59 Dose: 500 mg Documented by: Cholecalciferol (Cholecalciferol 1,000 Unit Tab) 2,000 unit PO DAILY [facility] Last Admin: 09/05/20 07:59 Dose: 2,000 unit Documented by: Cyanocobalamin (Cyanocobalamin 500 Mcg Tab) 1,000 mcg PO DAILY [facility] Last Admin: 09/05/20 08:00 Dose: 1,000 mcg Documented by: Duloxetine HCl (Duloxetine Hcl 60 Mg Capsule.Dr) 60 mg PO BID [facility] Last Admin: 09/05/20 08:03 Dose: 60 mg Documented by: Gabapentin (Gabapentin 300 Mg Cap) 600 mg PO TID [facility] Last Admin: 09/05/20 15:43 Dose: 600 mg Documented by: Hydrochlorothiazide (Hydrochlorothiazide 25 Mg Tab) 50 mg PO DAILY [facility] Last Admin: 09/05/20 08:09 Dose: 50 mg Documented by: Hydromorphone HCl (Hydromorphone 0.5 Mg/0.5 Ml Syringe) 0.5 mg IVP Q4HR PRN PRN Reason: Pain Hydromorphone HCl (Hydromorphone 1 Mg/Ml 1 Ml Syringe) 1 mg IVP Q4HR PRN PRN Reason: Pain Last Admin: 09/05/20 11:11 Dose: 1 mg Documented by: Lactated Ringer's (Lactated Ringers) 1,000 mls @ 20 mls/hr IV .Q24H [facility] Last Admin: 09/05/20 05:50 Dose: Not Given Documented by: Sodium Chloride (Saline 0.9%) 1,000 mls @ 75 mls/hr IV .[id number] [facility] Last Admin: 09/05/20 14:24 Dose: 75 mls/hr Documented by: Levothyroxine Sodium (Levothyroxine 75 Mcg Tab) 75 mcg PO DAILY@0630 [facility] Last Admin: 09/05/20 05:32 Dose: 75 mcg Documented by: Magnesium Hydroxide (Magnesium Hydroxide 2,400 Mg/10 Ml Cup) 2,400 mg PO DAILY PRN PRN Reason: Constipation Magnesium Oxide (Magnesium Oxide 400 Mg Tab) 400 mg PO DAILY [facility] Last Admin: 09/05/20 08:01 Dose: 400 mg Documented by: Melatonin (Melatonin 5 Mg Tablet) 10 mg PO HS [facility] Last Admin: 09/04/20 20:20 Dose: 10 mg Documented by: Morphine Sulfate (Morphine Sulfate Er 30 Mg Tablet) 30 mg PO Q12HR [facility] Last Admin: 09/05/20 08:01 Dose: 30 mg Documented by: Nortriptyline HCl (Nortriptyline 25 Mg Cap) 50 mg PO HS [facility] Last Admin: 09/04/20 20:25 Dose: 50 mg Documented by: Ondansetron HCl (Ondansetron 4 Mg/2 Ml Vial) 4 mg IVP Q6HR PRN PRN Reason: Nausea Pantoprazole Sodium (Pantoprazole 40 Mg Tablet) 40 mg PO HS [facility] Last Admin: 09/04/20 20:20 Dose: 40 mg Documented by: Polyethylene Glycol (Polyethylene Glycol 3350 17 Gm Powd.Pack) 17 gm PO DAILY [facility] Last Admin: 09/05/20 07:57 Dose: 17 gm Documented by: Prednisone (Prednisone 10 Mg Tab) 10 mg PO DAILY [facility] Last Admin: 09/05/20 08:03 Dose: 10 mg Documented by: Senna/Docusate Sodium (Sennosides-Docusate Sodium 1 Each Tab) 1 each PO DAILY [facility] Last Admin: 09/05/20 07:58 Dose: 1 each Documented by: On examination: VITAL SIGNS: 99, 91, 16, 124/65, 96% room air GENERAL APPEARANCE: Laying in bed, not in distress. HEENT: Normal external appearance of nose and ear. Oral cavity normal EYES: Pupils equal. Conjunctiva normal. NECK: JVD not raised. Mass not palpable. RESPIRATORY: Respiratory effort normal. Lungs clear to auscultation. CARDIOVASCULAR: First and second sounds normal. No edema. ABDOMEN: Soft. Liver and spleen not palpable. No tenderness. No mass palpable. MUSCULAR skeletal: Dressing over the lumbar spine PSYCHIATRY: Alert and oriented x3. Mood and affect normal. INVESTIGATIONS, reviewed in the clinical context: White count 10.1 hemoglobin 13.3 potassium 3 creatinine 0.9 Assessment: -Spinal stenosis L5-S1, severe DJD, for middle stenosis, lower back pain with lower extremity radiculopathy with laminectomy and decompression and discectomy -Diabetes mellitus type 2 -Chronic fibromyalgia -GERD -Rheumatoid arthritis -Hypothyroid -Obesity BMI 37.3 Plan: Continue current medication treatment plan. Encouraged to ambulate. Accu-Cheks are being followed. Normal saline at 75 mL an hour. Care was discussed with the patient Thank you Dr. Oates
[2020-09-05] MEDS: NORTRIPTYLINE 25 MG CAP PO SCH (20:25)
[2020-09-05] MEDS: MELATONIN 5 MG TABLET PO SCH (20:25)
[2020-09-05] MEDS: ATORVASTATIN 10 MG TAB PO SCH (20:25)
[2020-09-05] MEDS: PANTOPRAZOLE 40 MG TABLET PO SCH (20:25)
[2020-09-05 21:24] VITALS: RESP 18
[2020-09-06] MEDS: HYDROcodone/APAP 5-325MG 1 EACH TAB PO PRN ×2 (03:51→12:36)
[2020-09-06] MEDS: LACTATED RINGERS 1,000 ML IV SCH (05:46)
[2020-09-06] MEDS: LEVOTHYROXINE 75 MCG TAB PO SCH (05:49)
[2020-09-06 07:47] VITALS: BP 98/63; PULSE 93; TEMP 97.7
[2020-09-06] MEDS: hydroCHLOROthiazide 25 MG TAB PO SCH (09:21)
[2020-09-06] MEDS: CALCIUM CARBONATE 500 MG CHEWABLE PO SCH (09:21)
[2020-09-06] MEDS: CYANOCOBALAMIN 500 MCG TAB PO SCH (09:22)
[2020-09-06] MEDS: DULoxetine HCL 60 MG CAPSULE.DR PO SCH (09:22)
[2020-09-06] MEDS: ASCORBIC ACID 500 MG TAB PO SCH (09:22)
[2020-09-06] MEDS: GABAPENTIN 300 MG CAP PO SCH (09:22)
[2020-09-06] MEDS: CHOLECALCIFEROL 1,000 UNIT TAB PO SCH (09:22)
[2020-09-06] MEDS: MAGNESIUM OXIDE 400 MG TAB PO SCH (09:22)
[2020-09-06] MEDS: MORPHINE SULFATE ER 30 MG TABLET PO SCH (09:23)
[2020-09-06] MEDS: predniSONE 10 MG TAB PO SCH (09:24)
[2020-09-06] MEDS: polyethylene glycoL 3350 17 GM POWD.PACK PO SCH (09:24)
[2020-09-06] MEDS: SENNOSIDES-DOCUSATE SODIUM 1 EACH TAB PO SCH (09:24)
[2020-09-06 11:02] LABS: African American GFR (CKD) 107.6 (60.0-200.0); Anion Gap 8.8 mmol/L (4.00-12.00); BUN/Creat Ratio 25.71 Ratio (12.00-20.00); Carbon Dioxide 31.2 mmol/L (21.6-31.8); Non-African American GFR(CKD) 92.9 (60.0-200.0); Potassium 3.5 mmol/L (3.5-5.5)
--- NOTE | 2020-09-06 13:57 | P.DS ---
Providers Date of admission: 09/05/20 06:07 Attending physician: Krysten Choudhary Consults: 09/05/20 07:33 Consult Physician Routine Consulting Provider: David Anguiano Consult Reason/Comments: medical management Do you want consulting provider notified?: Yes Primary care physician: [facility] Course: The patient presented on the day of admission as per their operative note. She had severe spinal stenosis with spinal listhesis and lower extremity radiculopathy. She underwent her lumbar decompression and fusion as per her operative note. She feels she is doing very well. She's happy with her improvement in her lower extremity. Her back is sore as expected and she is managing appropriately. She has been able to tolerate regular diet she's mobile around her room without any assistance. She is not yet had a bowel movement which she is passing gas freely. Physical Exam The incision site is clean dry and intact. There is no erythema no drainage. There is no purulence no evidence of infection. There is some mild bruising but no drainage. Abdomen soft and nontender. Chest has good excursion with deep inspiration and expiration. The patient has active and passive range of motion intact at the upper and lower extremities. There is no acute change in neurologic status. She has sustained dorsal to plantar flexion and EHL intact. Hospital Course Postoperative day #2 status post minimally invasive decompression and fusion lumbar spine for spinal stenosis with listhesis and lower extremity radiculopathy and low back pain. The patient has been making good progress postoperatively. They have completed the prophylactic antibiotics without any signs or symptoms of infection. The patient has been able to advance their diet, and is tolerating diet adequately. The pain was initially controlled with IV medications and is now controlled appropriately with oral medications. The patient has been able to increase their mobilization. And which were in her room without any assistance. She is dressed and feels control to go home. The patient has progressed appropriately. I think they are in good stable condition for discharge today. They will be sent home with appropriate prescriptions. I answered their questions to the best of my ability in a language that they can understand and they are agreeable with the plan. They will follow up as directed in approximately 2 weeks or sooner if she is having problems. Patient Condition at Discharge: Good Plan - Discharge Summary Discharge Rx Participant: No New Discharge Prescriptions: New HYDROcodone/APAP 5-325MG [[place] 5] 1 each PO Q6HR PRN #28 tab PRN Reason: Breakthrough Pain Continue Magnesium Oxide [Mag-Ox] 250 mg PO DAILY Cyanocobalamin (Vitamin B-12) [Vitamin B-12] 1,000 mcg PO DAILY Cholecalciferol [Vitamin D3 (25 Mcg = 1000 Iu)] 2,000 unit PO DAILY Calcium Carbonate [Calcium] 600 mg PO BID Ascorbic Acid [Vitamin C] 500 mg PO DAILY Nortriptyline [Pamelor] 50 mg PO HS hydroCHLOROthiazide [Hydrodiuril] 50 mg PO DAILY Morphine Sulfate ER [Ms Contin] 30 mg PO Q12HR Levothyroxine Sodium [Synthroid] 75 mcg PO DAILY Gabapentin [Neurontin] 600 mg PO TID Omeprazole [PriLOSEC] 40 mg PO HS Polyethylene Glycol 3350 [Miralax] 17 gm PO DAILY predniSONE 10 mg PO DAILY DULoxetine HCL [Cymbalta] 60 mg PO BID Melatonin 10 mg PO HS Natural Laxative 4 tab PO BID Atorvastatin [Lipitor] 10 mg PO HS Discharge Medication List Ascorbic Acid [Vitamin C] 500 mg PO DAILY 10/01/17 [History] Calcium Carbonate [Calcium] 600 mg PO BID 10/01/17 [History] Cholecalciferol [Vitamin D3 (25 Mcg = 1000 Iu)] 2,000 unit PO DAILY 10/01/17 [History] Cyanocobalamin (Vitamin B-12) [Vitamin B-12] 1,000 mcg PO DAILY 10/01/17 [History] Gabapentin [Neurontin] 600 mg PO TID 10/01/17 [History] Levothyroxine Sodium [Synthroid] 75 mcg PO DAILY 10/01/17 [History] Magnesium Oxide [Mag-Ox] 250 mg PO DAILY 10/01/17 [History] Morphine Sulfate ER [Ms Contin] 30 mg PO Q12HR 10/01/17 [History] Nortriptyline [Pamelor] 50 mg PO HS 10/01/17 [History] Omeprazole [PriLOSEC] 40 mg PO HS 10/01/17 [History] Polyethylene Glycol 3350 [Miralax] 17 gm PO DAILY 10/01/17 [History] hydroCHLOROthiazide [Hydrodiuril] 50 mg PO DAILY 10/01/17 [History] Atorvastatin [Lipitor] 10 mg PO HS 08/29/20 [History] DULoxetine HCL [Cymbalta] 60 mg PO BID 08/29/20 [History] Melatonin 10 mg PO HS 08/29/20 [History] Natural Laxative 4 tab PO BID 08/29/20 [History] predniSONE 10 mg PO DAILY 08/29/20 [History] HYDROcodone/APAP 5-325MG [[place] 5] 1 each PO Q6HR PRN #28 tab 09/06/20 [Rx] Follow up Appointment(s)/Referral(s): Krysten Choudhary DO [Doctor of Osteopathic Medicine] - 2 Weeks Activity/Diet/Wound Care/Special Instructions: Keep site clean. May shower with waterproof Tegaderm intact. Do not soak in a tub. After 72 hours postoperatively, patient May remove dressing and then may shower with area uncovered. Leave Steri-Strips intact and allow them to fray off on their own. May ambulate as tolerated. Avoid heavy or rigorous activity. No repetitive bending twisting or lifting. No overhead work. Discharge Disposition: HOME SELF-CARE
--- NOTE | 2020-09-06 22:20 | P.PN ---
Progress Note - Text Progress Note Date: 09/06/20 Presenting complaint: Low back pain Interval history: Patient status post lumbar surgery. Today-doing much better today. Pain better controlled. Did walk quite a bit. Oral intake code. No nausea vomiting. Review of systems: Was done for constitutional, cardiovascular, GI, pulmonary. relevant finding as above Current medications reviewed in today's electronic records On examination: VITAL SIGNS: 97.7, 93, 18, 98/63, 95% room air GENERAL APPEARANCE: Sitting up in a chair, comfortable. EYES: Pupils equal. Conjunctiva normal. NECK: JVD not raised. Mass not palpable. RESPIRATORY: Respiratory effort normal. Lungs clear to auscultation. CARDIOVASCULAR: First and second sounds normal. No edema. ABDOMEN: Soft. Liver and spleen not palpable. No tenderness. No mass palpable. MUSCULAR skeletal: Dressing over the lumbar spine PSYCHIATRY: Alert and oriented x3. Mood and affect normal. INVESTIGATIONS, reviewed in the clinical context: Potassium 3.5 Previous testing White count 10.1 hemoglobin 13.3 potassium 3 creatinine 0.9 Assessment: -Spinal stenosis L5-S1, severe DJD, for middle stenosis, lower back pain with lower extremity radiculopathy with laminectomy and decompression and discectomy -Diabetes mellitus type 2 -Chronic fibromyalgia -GERD -Rheumatoid arthritis -Hypothyroid -Obesity BMI 37.3 -Hypokalemia-corrected Plan: Stable. Doing much better. If discharged to follow with PCP. Thank you Dr. Oates
== END 2020-09-06 15:05 | disposition home or self-care (01) ==
LOC: OR 06:05 → 5NMEDONC 10:41 → OR 09-05 06:33
PROVIDERS: ADMIT Orthopaedic Surgery Orthopaedic Surgery of the Spine; ATTEND Orthopaedic Surgery Orthopaedic Surgery of the Spine
DX: M48.07 Spinal stenosis, lumbosacral region (principal); M51.17 Intervertebral disc disorders with radiculopathy, lumbosacral region; M48.061 Spinal stenosis, lumbar region without neurogenic claudication; M51.36 Other intervertebral disc degeneration, lumbar region; M79.7 Fibromyalgia; M06.9 Rheumatoid arthritis, unspecified; E78.5 Hyperlipidemia, unspecified; I10 Essential (primary) hypertension; K21.9 Gastro-esophageal reflux disease without esophagitis; E03.9 Hypothyroidism, unspecified; G89.29 Other chronic pain; K59.00 Constipation, unspecified; F32.9 Major depressive disorder, single episode, unspecified; Z98.1 Arthrodesis status; J02.9 Acute pharyngitis, unspecified; E66.9 Obesity, unspecified; Z68.37 Body mass index [BMI] 37.0-37.9, adult; E87.6 Hypokalemia; M47.9 Spondylosis, unspecified; E11.9 Type 2 diabetes mellitus without complications; Z90.710 Acquired absence of both cervix and uterus; Z87.891 Personal history of nicotine dependence; Z85.828 Personal history of other malignant neoplasm of skin; Z85.43 Personal history of malignant neoplasm of ovary; Z79.899 Other long term (current) drug therapy; Z79.52 Long term (current) use of systemic steroids; Z79.890 Hormone replacement therapy; Z79.891 Long term (current) use of opiate analgesic; Z88.1 Allergy status to other antibiotic agents; Z91.040 Latex allergy status; Z80.9 Family history of malignant neoplasm, unspecified; Z82.49 Family history of ischemic heart disease and other diseases of the circulatory system; M47.27 Other spondylosis with radiculopathy, lumbosacral region
CPT/HCPCS: 97116; 97162; 80048 ×2; 85025; 72100; 22612; 63030; 20936; G0378 ×2; C1713; C1762; J2250; J1200; J2710; J1720; J0690 ×3; J2405; J2001; J3010; J1170 ×3; J0330; J2704; J7512 ×2; 86850; 86900; 86901